=== PATIENT | male | born 1940 ===

== ENCOUNTER 2018-07-14 05:46 | Inpatient (IN) | payer MEDICARE, MEDICAID ==
[~2018-07-14] VITALS: Ht 167.6 cm; Wt 50.9 kg
--- NOTE | ~2018-07-14 | PR ---
[place], [place] PROGRESS NOTE NAME: SHAI WHALEN UNIT #: [id number] ROOM: 420 DOCTOR: PHD DEAN BUENROSTRO BIRTHDATE: [birth year] DOS: 07/15/2018 I followed up with the patient for a competency evaluation. The patient's pink slip will on 07/16. The patient was administered Geodon due to aggressive behaviors and was currently sleeping prior to this administration. He was oriented to person only. He has continued to demonstrate disorganized thought process that he demonstrated during my evaluation on 07/15. Further, he was easily confused, demonstrated poor short and long-term memory and conversation and impaired judgment and insight. He is clearly not competent to make his own healthcare decisions at this time. He would benefit from establishing a guardian. Emergency guardianship paperwork was completed and given to the [facility] social workers. Teri Buenrostro, PhD CM:AMI [id number] PHD DEAN BUENROSTRO 07/16/18 0314 interface
--- NOTE | ~2018-07-14 | EKG ---
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
--- NOTE | ~2018-07-14 | CON ---
[place], [place] REPORT OF CONSULTATION NAME: SHAI WHALEN UNIT #: [id number] ROOM: 420 DOCTOR: PHD LUZ DEAN BIRTHDATE: [birth year] DOS: 07/14/2018 HISTORY OF PRESENT ILLNESS: The patient is a 78-year-old male with a history of schizophrenia who was referred by the hospitalist to determine appropriateness of placement [facility] the [facility]. The patient had been admitted to the [facility] following paranoid behavior at the facility where he lives. He thought someone was impersonating him. He was transferred from the [facility] to the fourth floor following an episode where his pulse ox dropped to the low 70s and his heart rate was in the 140s. The patient is a poor historian. He stated that he is , has a son and has a girlfriend of 10 years. PAST MEDICAL HISTORY: Chronic atrial fibrillation, COPD, epilepsy, hypertension, GERD, hypercholesterolemia. MEDICATIONS: Pepcid, Plavix, aspirin, Lopressor, Tegretol XR, Zocor, Coumadin, DuoNeb, risperidone, Zofran. SOCIAL HISTORY: The patient has a 1:1 sitter due to threatening and impulsive behavior. He was sitting outside of his room, in no apparent distress. He was awake, alert and oriented to person, month and year. He could not name the president. Eye contact and social skills were poor. Affect was restricted in range. Mood was anxious. He denied suicidal and homicidal ideation. Speech was mumbled. Expressive and receptive language appeared within normal limits conversationally Thought process was noteworthy for derailment. There were no apparent hallucinations or delusions. At that time, he appeared confused and do experience short and long-term memory deficits on a conversational basis. Insight and judgment appeared poor. DIAGNOSES: Schizophrenia, paranoid type, tobacco use disorder. PLAN: Given the patient's continued symptoms of a thought disorder, he would benefit from continued psychiatric stabilization on the [facility]. I discussed the patient with Dr. Forbes. The patient appears to be appropriate to return to [facility] once he is medically clear. Teri Buenrostro, PhD CM:CONSTR:REPORT OF CONSULTATION 1525 07/15/18 0332 interface
[2018-07-14 05:25] VITALS: BP 150/117
[~2018-07-14 05:46] MED LIST: ASPIRIN81 M1 PO; BREO ELLIPTA 11 EACH PO; CARBAMAZEPINE200 M2 PO; CLOPIDOGREL75 MG PO; COUMADIN10 M1 PO; HEARTBURN RELIE20 MG PO; KEPPRA500 MG PO; LOPRESSOR50 M1 PO; RISPERDAL0.5 MG PO; SIMVASTATIN40 MG PO; SPIRIVA RESPIMAT4 GM INH; VENTOLIN 02.5 MG/3 M INH
[2018-07-14 06:15] VITALS: BP 152/96
[2018-07-14 06:42] LABS: ABG BASE EXCESS 0.5 mmol/L (-2.0-2.0); ABG HCO3 24.5 mmol/l (22-26); ARTERIAL BLOOD GAS PCO2 38.2 mmHg (35-45); ARTERIAL BLOOD GAS PH 7.42 (7.35-7.45); ARTERIAL BLOOD GAS PO2 85.9 mmHg (80-90)
[2018-07-14 07:46] LABS: ALBUMIN 4.1 gm/dl (3.1-4.5); ALKALINE PHOSPHATASE 63 U/L (45-117); BUN 14 mg/dl (7-24); CHLORIDE 112 mmol/L (98-107); CHOLESTEROL 158 mg/dL (<200); CREATININE 0.91 mg/dL (0.70-1.30); HDL CHOLESTEROL 58 mg/dl (40-60); LDL CHOLESTEROL 80 mg/dL (9-159); PHOSPHOROUS 2.5 mg/dL (2.5-4.9); POTASSIUM 4.2 mmol/L (3.5-5.1); SGOT/AST 43 IU/L (3-35); SGPT/ALT 37 U/L (12-78); SODIUM 146 mmol/L (136-145); TOTAL PROTEIN 7.4 gm/dL (6.4-8.2); TRIGLYCERIDES 101 mg/dl (<150); VLDL CHOLESTEROL 20 mg/dL (6-40)
[2018-07-14 07:49] LABS: BASO # 0.1 10*3/uL (0.0-0.1); BASO % 0.5 % (0.0-1.0); EOS # 0.1 10*3/uL (0.0-0.4); EOS % 0.8 % (1.0-4.0); HEMATOCRIT 43.5 % (42.0-52.0); HEMOGLOBIN 14.1 g/dl (14.0-18.0); LYMPH # 1.5 10*3/uL (1.3-4.4); LYMPH % 14.7 % (27.0-41.0); MEAN CELL VOLUME 87.7 fl (80.0-94.0); MEAN CORPUSCULAR HGB 28.4 pg (27.0-31.0); MEAN CORPUSCULAR HGB CONC 32.4 g/dl (33.0-37.0); MEAN PLATELET VOLUME 10.8 fl (9.6-12.3); MONO # 1.3 10*3/uL (0.1-1.0); MONO % 12.6 % (3.0-9.0); NEUT # 7.3 10*3/uL (2.3-7.9); NEUT % 70.9 % (47.0-73.0); PLATELET COUNT AUTOMATED 222 10*3/uL (130-400); RED BLOOD COUNT 4.96 10*6/uL (4.50-5.90); RED CELL DISTRI WIDTH 14.6 % (0-14.5); WHITE BLOOD COUNT 10.3 10*3/uL (4.8-10.8)
[2018-07-14 07:51] LABS: THYROID STIM HORMONE (HS) 0.727 uIU/ml (0.358-4.75)
[2018-07-14 09:37] LABS: INTERNATIONAL NORM RATIO 1.6 (2.0-3.5)
[2018-07-14 16:00] VITALS: BP 125/91
[2018-07-14 20:00] VITALS: BP 120/90
[2018-07-15] VITALS: BP 132/86
[2018-07-15 06:01] LABS: BUN 14 mg/dl (7-24); CHLORIDE 112 mmol/L (98-107); CREATININE 0.88 mg/dL (0.70-1.30); POTASSIUM 3.7 mmol/L (3.5-5.1); SODIUM 147 mmol/L (136-145)
[2018-07-15 06:27] LABS: BASO % 0.4 % (0.0-1.0); EOS # 0.1 10*3/uL (0.0-0.4); EOS % 1.5 % (1.0-4.0); HEMATOCRIT 42.8 % (42.0-52.0); HEMOGLOBIN 13.9 g/dl (14.0-18.0); LYMPH # 1.7 10*3/uL (1.3-4.4); MEAN CELL VOLUME 87.7 fl (80.0-94.0); MEAN CORPUSCULAR HGB 28.5 pg (27.0-31.0); MEAN CORPUSCULAR HGB CONC 32.5 g/dl (33.0-37.0); MEAN PLATELET VOLUME 11.1 fl (9.6-12.3); MONO # 1.5 10*3/uL (0.1-1.0); MONO % 16.1 % (3.0-9.0); NEUT # 5.9 10*3/uL (2.3-7.9); NEUT % 63.5 % (47.0-73.0); PLATELET COUNT AUTOMATED 215 10*3/uL (130-400); RED BLOOD COUNT 4.88 10*6/uL (4.50-5.90); RED CELL DISTRI WIDTH 14.6 % (0-14.5); WHITE BLOOD COUNT 9.3 10*3/uL (4.8-10.8)
[2018-07-15 06:41] LABS: INTERNATIONAL NORM RATIO 1.2 (2.0-3.5)
[2018-07-15 08:00] VITALS: BP 132/82
[2018-07-15 16:00] VITALS: BP 132/88
[2018-07-27] MEDS ORDERED: WARFARIN SODIU7.5 MG PO (07:40)
[2018-07-27] MEDS ORDERED: EXELON13.3 MG/21 T (08:27)
[2018-07-27] MEDS ORDERED: MIRTAZAPINE15 M1 PO (08:27)
[2018-07-27] MEDS ORDERED: RISPERIDONE M-TA1 MG BC (08:27)
[2018-07-27] MEDS ORDERED: MEMANTINE HCL10 MG PO (08:27)
== END 2018-07-15 19:57 | disposition home health service (06) | DRG 308 ==
LOC: 4E 05:46
PROVIDERS: Internal Medicine
DX: I48.2 Chronic atrial fibrillation (principal); E43 Unspecified severe protein-calorie malnutrition; E87.0 Hyperosmolality and hypernatremia; F20.0 Paranoid schizophrenia; Z68.1 Body mass index [BMI] 19.9 or less, adult; R06.03 Acute respiratory distress; R09.02 Hypoxemia; J44.9 Chronic obstructive pulmonary disease, unspecified; R63.6 Underweight; K21.9 Gastro-esophageal reflux disease without esophagitis; G40.909 Epilepsy, unspecified, not intractable, without status epilepticus; E78.00 Pure hypercholesterolemia, unspecified; F17.210 Nicotine dependence, cigarettes, uncomplicated; I10 Essential (primary) hypertension; Z79.82 Long term (current) use of aspirin; Z82.49 Family history of ischemic heart disease and other diseases of the circulatory system; Z79.01 Long term (current) use of anticoagulants